=== PATIENT | female | born 1965 | race Caucasian/White ===

== ENCOUNTER 2018-04-15 23:14 | Emergency (ER) | payer OTHER ==
[~2018-04-15] VITALS: Ht 167.6 cm; Wt 95.3 kg
[2018-04-15] MEDS ORDERED: SINGULAIR 10 MG10 MG PO (23:29)
[2018-04-16] MEDS ORDERED: NORCO 5-325 TA1 EACH PO (00:26)
[2018-04-16] MEDS ORDERED: AUGMENTIN 875-1 EACH PO (00:26)
[2018-04-16 01:30] VITALS: BP 133/77
== END 2018-04-16 01:36 | disposition home or self-care (01) ==
LOC: M.ERS 23:14
DX: S61.411A Laceration without foreign body of right hand, initial encounter (principal); W54.0XXA Bitten by dog, initial encounter; Y93.89 Activity, other specified; Y92.89 Other specified places as the place of occurrence of the external cause; Y99.8 Other external cause status

== ENCOUNTER 2020-04-08 14:18 | Emergency (ER) | payer OTHER ==
[~2020-04-08] VITALS: Ht 167.6 cm; Wt 99.8 kg
[~2020-04-08 14:18] MED LIST: AUGMENTIN 875-1 EACH PO; NORCO 5-325 TA1 EACH PO; SINGULAIR 10 MG10 MG PO
[2020-04-08 14:53] LABS: ABSOLUTE LYMPHOCYTES 1.7 thou/uL (0.8-5.3); ABSOLUTE MONOCYTES 0.6 thou/uL (0.0-1.2); ABSOLUTE NEUTROPHILS 5.8 thou/uL (1.6-8.1); BASOPHILS 0.4 %; EOSINOPHILS 0.1 %; HEMATOCRIT 40.6 % (37.0-47.0); HEMOGLOBIN 13.8 gm/dL (12.0-15.0); LYMPHOCYTES 20.8 %; MCHC 34.1 g/dL (28.0-37.0); MCV 87.8 fL (80.0-100.0); MONOCYTES 6.9 %; MPV 7.2 fl. (7.2-11.1); NUCLEATED RBCS 0 /100WBC; PLATELET COUNT* 282 thou/uL (150-400); POLYS 71.8 %; RBC 4.62 mil/uL (4.20-5.00); RDW-CV 13.3 % (10.5-14.5); WBC 8.1 thou/uL (4.0-11.0)
[2020-04-08 15:02] LABS: CALCIUM 8.4 mg/dL (8.5-10.1)
[2020-04-08 15:08] LABS: ALBUMIN 3.5 g/dL (3.4-5.0); TOTAL BILIRUBIN 0.7 mg/dL (<0.1-1.0); TOTAL PROTEIN 6.9 g/dL (6.4-8.2)
[2020-04-08] MEDS ORDERED: PREDNISONE50 MG PO (15:40)
[2020-04-08] MEDS ORDERED: ZOFRAN ODT4 MG DISSOLVE (15:44)
[2020-04-08 15:53] VITALS: BP 157/86
--- NOTE | 2020-04-10 12:15 | EKG ---
[place] [address] ELECTROCARDIOGRAM REPORT Name: KRISTOFER QUEZADA Room: [facility]#: [id number] Admission: 04/08/20 Attend Phys: Discharge: 04/08/20 Date of : 65 Date of Service: 04/08/20 1450 Report #: [id number] THIS REPORT FOR: //name// [facility] ED Test Date: 2020-04-08 Test Time: 14:50:49 Pat Name: KRISTOFER QUEZADA Department: Room: Gender: F Asbestos Abatement Technician: RYAN : 1965 Requested By: Johnathon Mcclendon Order Number: [id number] Reading MD: Juan Carlos Lucas Measurements Intervals [place] Rate: 70 P: 43 [place]: 136 QRS: -3 QRSD: 108 T: 8 QT: 376 QTc: 406 Interpretive Statements Sinus rhythm Borderline T wave abnormalities No previous ECG available for comparison Electronically Signed On 04-10-2020 12:15:23 DIRECTOR FINANCIAL ANALYSIS by Juan Carlos Lucas [email or web address] <ELECTRONICALLY SIGNED> By: Juan Carlos Lucas MD, [facility] 04/10/20 1215 1450 1450 Juan Carlos Lucas MD, FACC /EPI
== END 2020-04-08 16:03 | disposition home or self-care (01) ==
LOC: M.ERS 14:18
PROVIDERS: Emergency Medicine Emergency Medical Services
DX: U07.1 COVID-19 (principal); J12.89 Other viral pneumonia